=== PATIENT | female | born 1980 | race Caucasian/White ===

== ENCOUNTER 2018-03-29 14:43 | Inpatient (IN) | END 2018-04-04 14:20 | disposition home or self-care (01) | DRG 563 ==

== ENCOUNTER 2018-09-13 21:22 | Emergency (ER) | payer MEDICAID, OTHER ==
[~2018-09-13] VITALS: Ht 165.1 cm; Wt 68.2 kg
[2018-09-13 21:25] VITALS: Ht 165.1 cm; Wt 68.2 kg
[2018-09-13] MEDS ORDERED: ONDANSETRON 4 MG INJ IV STA (21:37)
[2018-09-13] MEDS ORDERED: morphine 4 MG/ML VIAL IV STA (21:37)
[2018-09-13 21:38] VITALS: BP 131/90; PULSE 87; RESP 18
[2018-09-13] MEDS ORDERED: ONDANSETRON (ODT) 4 MG TAB ODT STA (21:42)
[2018-09-13] MEDS ORDERED: morphine 4 MG/ML VIAL IM STA (21:42)
[2018-09-13] MEDS ORDERED: TRAM50TA2 PO (21:52)
[2018-09-13] MEDS ORDERED: IBUP-1542 PO (21:52)
--- NOTE | 2018-09-13 21:56 | ERD ---
ER Documentation Chief Complaint Chief Complaint RT ANKLE DEFORMITY WITH SWELLING, BRUISING AND MOTTLING COLORATION HPI This is a 38-year-old female comes in with complaints of right ankle deformity with swelling bruising and mottling. Patient says she stepped accidentally into a hole and twisted her ankle yesterday. Is been greater than 24 hours. She is unable to ambulate at this time. Pain is mild to moderate in intensity. Exacerbated by movement. Denies any other trauma. Denies any numbness or tingling. It is the patient's dominant foot. ROS All systems reviewed and are negative except as per history of present illness. Medications Home Meds Active Scripts Tramadol HCl (Tramadol HCl) 50 Mg Tablet, 50 MG PO Q4 PRN for PAIN, #20 TAB Prov:CAROLYN MATHIS 09/13/18 Ibuprofen* (Motrin*) 600 Mg Tab, 600 MG PO Q6, #30 TAB Prov:CAROLYN MATHIS 09/13/18 Allergies Allergies: Coded Allergies: No Known Allergy (Unverified , 03/27/18) PMhx/Soc Medical and Surgical Hx: pt denies Medical Hx, pt denies Surgical Hx History of Surgery: No Anesthesia Reaction: No Hx Neurological Disorder: No Hx Respiratory Disorders: No Hx Cardiac Disorders: No Hx Psychiatric Problems: No Hx Miscellaneous Medical Probl: Yes (See EMR for details. ) Hx Alcohol Use: No Hx Substance Use: No Hx Tobacco Use: Yes (9 CIGARETTE/DAY) Smoking Status: Current every day smoker Physical Exam Vitals Vital Signs Date Temp Pulse Resp B/P (MAP) Pulse Ox O2 O2 Flow FiO2 Time Delivery Rate 09/13/18 99.5 87 18 131/90 99 Room Air 21:38 (104) 09/13/18 99.5 109 18 163/92 97 21:25 (115) Physical Exam Const: No acute distress Head: Atraumatic Eyes: Normal Conjunctiva ENT: Normal External Ears, Nose and Mouth. Neck: Full range of motion. No meningismus. Resp: Clear to auscultation bilaterally Cardio: Regular rate and rhythm, no murmurs Abd: Soft, non tender, non distended. Normal bowel sounds Skin: No petechiae or rashes Back: No midline or flank tenderness Ext: Right ankle with significant ecchymosis noted to the mid calf down to the mid forefoot. Normal DP and PT pulses. Normal sensation. Gross swelling noted as well. Neur: Awake and alert Psych: Normal Mood and Affect Results 24 hrs Current Medications Medications Dose Sig/Blanca Start Time Status Last (Trade) Ordered Route PRN Stop Time Admin Dose Reason Admin Morphine 4 mg ONCE STAT 09/13/18 DC Sulfate IV 21:37 (morphine) 09/13/18 21:38 Ondansetron 4 mg ONCE STAT 09/13/18 DC HCl (Zofran IV 21:37 Inj) 09/13/18 21:38 Morphine 4 mg ONCE STAT 09/13/18 DC 09/13/18 Sulfate IM 21:42 21:51 (morphine) 09/13/18 21:44 Ondansetron 4 mg ONCE STAT 09/13/18 DC 09/13/18 HCl (Zofran ODT 21:42 21:51 Odt) 09/13/18 21:44 Procedures/MDM X-ray Ankle 3V Interpreted by me: Bones: Bimalleolar fracture Joints: No dislocation Medical decision making: This is a very pleasant 38-year-old female who unfortunately suffered an ankle fracture. She is been placed in a splint. She is neurologically and neurovascularly intact in the ankle pre-and post splint application. Patient will be given a referral to the on-call orthopedic doctor to follow-up within the week. She is been placed in a posterior and stirrup splint. Also given crutches. Discharged home with tramadol and Motrin. Return for any worsening pain numbness tingling. Splint Assessment: Neurovascularly intact post splint placement with good fit. Departure Diagnosis: Primary Impression: Ankle injury Encounter type: initial encounter Laterality: right Qualified Codes: S99.911A - Unspecified injury of right ankle, initial encounter Condition: Stable Patient Instructions: Fracture, Ankle (General) Referrals: CLARENCE RAMOS MD, DANIEL S. Sep 13, 2018 21:56
== END 2018-09-13 22:20 | disposition home or self-care (01) ==
LOC: E/R 21:22
DX: S90.01XA Contusion of right ankle, initial encounter (principal); F17.210 Nicotine dependence, cigarettes, uncomplicated; X50.1XXA Overexertion from prolonged static or awkward postures, initial encounter; Y92.9 Unspecified place or not applicable
CPT/HCPCS: 29515; 73610; 96372; 99284; J2270; J2405